=== PATIENT | male | born 1980 | race Caucasian/White ===

== ENCOUNTER 2017-02-19 20:08 | Emergency (ER) | payer SELFPAY ==
[~2017-02-19] VITALS: Ht 180.3 cm; Wt 109.1 kg
[2017-02-19] MEDS ORDERED: KEFLEX500 MG PO (22:21)
[2017-02-19] MEDS ORDERED: NORCO 5/3251 TABLET PO (22:21)
[2017-02-19 22:35] VITALS: BP 154/98
== END 2017-02-19 22:37 | disposition home or self-care (01) ==
LOC: EME 20:08 → EDBD 20:08 → EME 22:37
PROC: 0KQ Muscles, Repair (ICD-10-PCS; principal; 2017-02-19)
DX: S71.111A Laceration without foreign body, right thigh, initial encounter (principal); V86.59XA Driver of other special all-terrain or other off-road motor vehicle injured in nontraffic accident, initial encounter; F17.200 Nicotine dependence, unspecified, uncomplicated
CPT/HCPCS: 99281; 99284; J0690

== ENCOUNTER 2017-02-21 17:51 | Emergency (ER) | payer SELFPAY ==
[~2017-02-21] VITALS: Ht 180.3 cm; Wt 101.2 kg
[~2017-02-21 17:51] MED LIST: KEFLEX500 MG PO; NORCO 5/3251 TABLET PO
[2017-02-21] MEDS ORDERED: AUGMENTIN875 MG PO (20:33)
[2017-02-21] MEDS ORDERED: PERCOCET 5/31 TABLET PO (20:33)
[2017-02-21 21:02] VITALS: BP 142/105
== END 2017-02-21 21:03 | disposition home or self-care (01) ==
LOC: EME 17:51
DX: L03.115 Cellulitis of right lower limb (principal); S71.111D Laceration without foreign body, right thigh, subsequent encounter
CPT/HCPCS: 73552; 93971; 99281; 99284

== ENCOUNTER 2017-03-03 13:17 | Emergency (ER) | payer SELFPAY ==
[~2017-03-03] VITALS: Ht 180.3 cm; Wt 102.4 kg
[~2017-03-03 13:17] MED LIST changes: +AUGMENTIN875 MG PO; +PERCOCET 5/31 TABLET PO
[2017-03-03 15:18] LABS: HEMATOCRIT 44.1 % (38.0-50.0); MCH 28.5 PG (29.0-34.0); MCHC 33.8 G/DL (30.0-36.0); MCV 84.3 FL (86-99); MEAN PLAT.VOLUME 8.5 uM^3 (9.0-12.4); PLATELET COUNT 356 K/uL (156-360); RBC DIS.WIDTH-CV 12.5 % (11.8-14.6); RBC DIS.WIDTH-SD 38.2 % (39-53); RED BLOOD COUNT 5.23 M/uL (4.00-5.50); WHITE BLOOD COUNT 8.5 K/uL (4.1-10.2)
[2017-03-03 15:20] LABS: CHLORIDE 105 mEq/L (99-109); POTASSIUM 4.7 mEq/L (3.7-5.4); SODIUM 141 mEq/L (136-147)
[2017-03-03 15:21] LABS: PROTHROMBIN TIME 10.3 (9.2-11.2); PTT 33.4 (25-32)
[2017-03-03 15:22] LABS: GLUCOSE 98 mg/dL (70-99)
[2017-03-03 15:23] LABS: ANION GAP 10 MEQ/L (2-14)
[2017-03-03 15:26] LABS: GFR ESTIMATE (CALCULATED) > 59 mL/min/
[2017-03-03 15:27] LABS: UREA NITROGEN (BUN) 10 mg/dL (9-23)
[2017-03-03] MEDS ORDERED: KEFLEX500 MG PO (17:11)
[2017-03-03] MEDS ORDERED: BACTRIM,SEPT1 TABLET PO (17:11)
[2017-03-03 17:54] VITALS: BP 155/102
== END 2017-03-03 17:54 | disposition home or self-care (01) ==
LOC: EME 13:17
PROVIDERS: Physician Assistant
DX: L08.9 Local infection of the skin and subcutaneous tissue, unspecified (principal); S71.111A Laceration without foreign body, right thigh, initial encounter; V86.59XA Driver of other special all-terrain or other off-road motor vehicle injured in nontraffic accident, initial encounter; R60.0 Localized edema; F17.200 Nicotine dependence, unspecified, uncomplicated
CPT/HCPCS: 80048; 85027; 85610; 85730; 93971; 99281; 99283